=== PATIENT | female | born 1990 | race African-American/Black ===

== ENCOUNTER → 2020-03-14 | Outpatient (CLI) | payer MEDICAID ==
--- NOTE | 2020-03-14 13:49 | RADIOLOGY REPORT (SQ) ---
EXAM DESCRIPTION: LUMBAR SPINE COMPLETE IMAGES COMPLETED DATE/TIME: 03/14/2020 12:32 pm REASON FOR STUDY: RADICULOPATHY, LUMBAR REGION M54.16 RADICULOPATHY, LUMBAR REGION COMPARISON: None. NUMBER OF VIEWS: Five views including obliques. TECHNIQUE: AP, lateral, oblique, and sacral radiographic images acquired of the lumbar spine. LIMITATIONS: None. FINDINGS: MINERALIZATION: Normal. SEGMENTATION: Normal. No transitional anatomy. ALIGNMENT: Normal. VERTEBRAE: Maintained height. No fracture or worrisome bone lesion. DISCS: Preserved height. No significant osteophytes or end plate irregularity. POSTERIOR ELEMENTS: Spina bifida occulta at S1. No significant facet changes. HARDWARE: None in the spine. PARASPINAL SOFT TISSUES: Normal. PELVIS: Intact as visualized. No fractures or worrisome bone lesions. SI joints intact. OTHER: No other significant finding. IMPRESSION: No acute findings in the lumbosacral spine. TECHNICAL DOCUMENTATION: JOB ID: [id number] 2010 [employer]- All Rights Reserved Reading location - IP/workstation name: [email or web address]
== END ==
LOC: OD 12:12
PROVIDERS: ATTEND Family Medicine
DX: M54.16 Radiculopathy, lumbar region (principal)
CPT/HCPCS: 72110

== ENCOUNTER 2020-06-21 12:44 | Emergency (ER) | payer OTHER, MEDICAID ==
[2020-06-21 12:59] VITALS: BP 134/70
[2020-06-21] MEDS ORDERED: HYDROCODONE/ACETAMINOPHEN 5-325 MG TABLET PO ONE ×2 (13:43→16:15)
--- NOTE | 2020-06-21 13:45 | ER Document Report ---
HPI - HPI Time Seen by Provider: 06/21/20 13:38 Onset: Yesterday Onset/Duration: Sudden Quality of pain: Achy Pain Level: 4 Context: Patient states she was at work yesterday and a piece of heavy equipment tipped over. Patient states that it came back hitting her in the lower legs. Patient complains of pain with ambulation. Patient denies any other injury. Associated Symptoms: denies: Fever, Nausea, Vomiting Exacerbated by: Movement, Walking Relieved by: Denies Similar symptoms previously: No - ROS ROS below otherwise negative: Yes Systems Reviewed and Negative: Yes All other systems reviewed and negative - RESPIRATORY Respiratory: DENIES: Trouble Breathing, Coughing - GASTROINTESTINAL Gastrointestinal: DENIES: Nausea, Patient vomiting - MUSCULOSKELETAL Musculoskeletal: REPORTS: Extremity pain - DERM Skin Color: Ecchymosis Past Medical History - General Information source: Patient - Social History Smoking Status: Never Smoker Frequency of alcohol use: None Drug Abuse: None Occupation: [employer] Lives with: Family Family History: Reviewed & Not Pertinent Pulmonary Medical History: Reports: Hx Asthma Musculoskeletal Medical History: Reports Hx Arthritis - Back pain Psychiatric Medical History: Reports: Hx Anxiety, Hx Bipolar Disorder, Hx Depression Past Surgical History: Reports: Hx Section, Hx Oral Surgery - Immunizations Immunizations up to date: Yes Hx Diphtheria, Pertussis, Tetanus Vaccination: Yes Vertical Provider Document - CONSTITUTIONAL Agree With Documented VS: Yes Exam Limitations: No Limitations General Appearance: WD/WN, No Apparent Distress - INFECTION CONTROL TRAVEL OUTSIDE OF THE [place] IN LAST 30 DAYS: No - HEENT HEENT: Atraumatic, Normocephalic - NECK Neck: Normal Inspection, Supple - RESPIRATORY Respiratory: Breath Sounds Normal, No Respiratory Distress - CARDIOVASCULAR Cardiovascular: Regular Rate, Regular Rhythm Pulses: Normal: Posterior tibial - MUSCULOSKELETAL/EXTREMETIES Musculoskeletal/Extremeties: MAEW, FROM, Tender - Redness to bilateral lower extremity. Tenderness to the medial proximal third of the right lower leg in the anterior middle third of the left lower leg. Faint area of ecchymosis noted to the left lower extremity, Eccymosis Notes: Soft muscle compartments bilaterally - NEURO Level of Consciousness: Awake, Alert, Appropriate Motor/Sensory: No Motor Deficit, No Sensory Deficit - DERM Integumentary: Warm, Dry, No Rash Course - Re-evaluation Re-evalutation: 06/21/20 Patient without any acute fracture, will provide crutches to assist with ambulation due to leg pain. Patient encouraged to follow-up with her Workmen's Compensation provider for further evaluation or any persistent problems. - Vital Signs Vital signs: Temp Pulse Resp BP Pulse Ox 98.3 F 82 18 134/70 H 99 06/21/20 12:55 06/21/20 12:55 06/21/20 12:55 06/21/20 12:55 06/21/20 12:55 - Laboratory Results Critical Laboratory Results Reviewed: No Critical Results - Radiology Results Critical Radiology Results Reviewed: No Critical Results Discharge - Discharge Clinical Impression: Leg injury Qualifiers: Encounter type: initial encounter Laterality: unspecified laterality Qualified Code(s): S89.90XA - Unspecified injury of unspecified lower leg, initial encounter Contusion Qualifiers: Encounter type: initial encounter Contusion area: lower leg Laterality: uns pecified laterality Qualified Code(s): S80.10XA - Contusion of unspecified lower leg, initial encounter Condition: Stable Disposition: HOME, SELF-CARE Instructions: Contusion ([facility]), Use of Crutches ([facility]) Additional Instructions: Return immediately for any new or worsening symptoms Followup with your primary care provider, call tomorrow to make a followup appointment Weightbearing as tolerated Follow-up with your Workmen's Compensation provider, call their office tomorrow for an appointment Prescriptions: Cyclobenzaprine HCl [Flexeril 10 Mg Tablet] 10 mg PO TID #15 tablet Naproxen [Naprosyn 250 Nmg Tablet] 1 tab PO BID #14 tablet Forms: Return to Work Referrals: ANKIT GUERRA, [Primary Care Provider] - Follow up as needed
--- NOTE | 2020-06-21 14:23 | RADIOLOGY REPORT (SQ) ---
EXAM DESCRIPTION: TIB FIB BILAT 2 VIEWS IMAGES COMPLETED DATE/TIME: 06/21/2020 2:10 pm REASON FOR STUDY: equipment fell hitting bilat LE COMPARISON: None. NUMBER OF VIEWS: Four views. TECHNIQUE: Two radiographic images acquired of the right and left tibia and fibula to include the kn ee and ankle in at least one projection. LIMITATIONS: None. FINDINGS: MINERALIZATION: Normal. BONES: No acute fracture or dislocation. No worrisome bone lesions. SOFT TISSUES: No obvious swelling or foreign body. OTHER: No other significant finding. IMPRESSION: No fracture. TECHNICAL DOCUMENTATION: JOB ID: [id number] 2010 [employer]- All Rights Reserved Reading location - IP/workstation name: [email or web address]
== END 2020-06-21 16:17 | disposition home or self-care (01) ==
LOC: ER 12:44
DX: S80.10XA Contusion of unspecified lower leg, initial encounter (principal); W31.89XA Contact with other specified machinery, initial encounter; Y99.0 Civilian activity done for income or pay
CPT/HCPCS: 99283

== ENCOUNTER → 2020-07-04 | Outpatient (CLI) | payer OTHER, MEDICAID ==
--- NOTE | 2020-07-04 12:37 | RADIOLOGY REPORT (SQ) ---
EXAM DESCRIPTION: TIBIA FIBULA LEFT IMAGES COMPLETED DATE/TIME: 07/04/2020 12:24 pm REASON FOR STUDY: (S80.00XA)CONTUSION OF UNSPECIFIED KNEE, INITIAL ENCOUNTER S80.00XA CONTUSION OF UNSPECIFIED KNEE, INITIAL ENCOUNTER COMPARISON: None. NUMBER OF VIEWS: Two views. TECHNIQUE: Two radiographic images acquired of the left tibia and fibula to include the knee and ank le in at least one projection. LIMITATIONS: None. FINDINGS: MINERALIZATION: Normal. BONES: No acute fracture or dislocation. No worrisome bone lesions. SOFT TISSUES: No obvious swelling or foreign body. OTHER: Knee joint effusion. IMPRESSION: NEGATIVE STUDY OF THE LEFT TIBIA AND FIBULA. NO RADIOGRAPHIC EVIDENCE OF ACUTE INJURY. TECHNICAL DOCUMENTATION: JOB ID: [id number] 2010 [employer]- All Rights Reserved Reading location - IP/workstation name: [email or web address]
--- NOTE | 2020-07-04 12:37 | RADIOLOGY REPORT (SQ) ---
EXAM DESCRIPTION: KNEE RIGHT 3 VIEWS IMAGES COMPLETED DATE/TIME: 07/04/2020 12:23 pm REASON FOR STUDY: (S80.00XA)CONTUSION OF UNSPECIFIED KNEE, INITIAL ENCOUNTER S80.00XA CONTUSION OF UNSPECIFIED KNEE, INITIAL ENCOUNTER COMPARISON: None. NUMBER OF VIEWS: Four views. TECHNIQUE: AP, lateral, both oblique, and sunrise patella radiographic images acquired of the right knee. LIMITATIONS: None. FINDINGS: MINERALIZATION: Normal. BONES: No acute fracture or dislocation. No worrisome bone lesions. JOINT: Large joint effusion. SOFT TISSUES: No soft tissue swelling. No radio-opaque foreign body. OTHER: No other significant finding. IMPRESSION: Large joint effusion without evidence of acute bony abnormality of the right knee. TECHNICAL DOCUMENTATION: JOB ID: [id number] 2010 [employer]- All Rights Reserved Reading location - IP/workstation name: [email or web address]
== END ==
LOC: RAD 11:33
PROVIDERS: ATTEND Nurse Practitioner Family
DX: M25.461 Effusion, right knee (principal); S80.01XA Contusion of right knee, initial encounter; S80.02XA Contusion of left knee, initial encounter; X58.XXXA Exposure to other specified factors, initial encounter